=== PATIENT | female | born 2000 | race Caucasian/White ===

== ENCOUNTER 2024-03-03 09:30 | Inpatient (IN) | payer BC ==
[~2024-03-03] VITALS: Ht 154.9 cm; Wt 124.7 kg
[2024-03-03 09:35] VITALS: BP_SYST 123; PULSE 106; RESP 19; TEMP 98.2; O2SAT 95
[2024-03-03 10:01] LABS: BASOPHILS # (AUTO) 0.1 K/uL (0.0-0.2); BASOPHILS % (AUTO) 0.6 % (0.0-2.0); EOSINOPHILS # (AUTO) 0.1 K/uL (0.0-0.4); EOSINOPHILS % (AUTO) 0.4 % (0.0-4.0); HEMATOCRIT 31.1 % (36-48); HEMOGLOBIN 9.5 g/dL (12.0-16.0); LYMPHOCYTES # (AUTO) 3.3 K/uL (1.0-5.5); LYMPHOCYTES % (AUTO) 20.4 % (20.5-51.5); MEAN CORPUSCULAR HEMOGLOBIN 20 pg (27-31); MEAN CORPUSCULAR HGB CONC 31 % (32-36); MEAN CORPUSCULAR VOLUME 64 fL (79.0-98.0); MONOCYTES # (AUTO) 1.2 K/uL (0.0-1.0); MONOCYTES % (AUTO) 7.7 % (1.7-9.3); NEUTROPHILS # (AUTO) 11.5 K/uL (1.8-7.7); NEUTROPHILS % (AUTO) 70.9 % (40.0-70.0); PLATELET COUNT (AUTO) 405 K/uL (130-430); RED BLOOD CELL COUNT(AUTO) 4.86 MIL/uL (4.2-6.2); RED CELL DISTRIBUTION WIDTH 18.1 % (9.0-15.0); WHITE BLOOD COUNT (AUTO) 16.2 K/uL (4.8-10.8)
[2024-03-03 10:16] LABS: CALCIUM 8.9 mg/dL (8.4-11.0); CREATININE 0.69 mg/dL (0.55-1.30); POTASSIUM 4.8 mmol/L (3.5-5.1)
[2024-03-03] MEDS: KETOROLAC TROMETHAMINE 30 MG VIAL IVP ONE (10:53)
[2024-03-03 11:06] LABS: BILIRUBIN,URINE NEGATIVE (NEGATIVE); BLOOD, URINE NEGATIVE (NEGATIVE); CLARITY/URINE CLEAR (CLEAR); COLOR,URINE YELLOW (YELLOW); GLUCOSE,URINE NEGATIVE (NEGATIVE); KETONES,URINE NEGATIVE (NEGATIVE); LEUKOCYTE ESTERASE ,URINE NEGATIVE (NEGATIVE); NITRITE, URINE NEGATIVE (NEGATIVE); PH,URINE 7.5 (5.0-8.0); PROTEIN URINE NEGATIVE (NEGATIVE); UROBILINOGEN,URINE 0.2 (0.2-1.0)
[2024-03-03] MEDS ORDERED: PIPERACILLIN/TAZOBACTAM 4.5 GM/VIAL (ZOSYN) IV ONE (12:17)
[2024-03-03] MEDS: PIPERACILLIN/TAZO 4.5 GM in NS 100 ML IV ONE (12:41)
[2024-03-03] MEDS: LR 500 ML IV ONE (12:43)
[2024-03-03] MEDS ORDERED: NALOXONE HCL 0.4 MG/ML AMP (NARCAN) IVP PRN (14:30)
[2024-03-03] MEDS: MORPHINE 2 MG/ML INJ. SYRINGE IVP PRN (14:52)
[2024-03-03 17:20] VITALS: BP_SYST 112; PULSE 81; RESP 18; TEMP 98.2
[2024-03-03 17:32] VITALS: O2SAT 97
[2024-03-03] MEDS: D5/0.45 NS 1,000 ML IV SCH (17:57)
[2024-03-03] MEDS: MORPHINE 4 MG INJ. 4 MG/ML VIAL IVP PRN (18:10)
[2024-03-03 20:00] VITALS: BP_SYST 118; PULSE 85; RESP 20; TEMP 99.1; O2SAT 98
[2024-03-03 20:45] VITALS: O2SAT 98
[2024-03-03] MEDS ORDERED: LORazepam 2 MG/ML VIAL IVP PRN (22:15)
[2024-03-04 02:30] VITALS: RESP 20; TEMP 99; O2SAT 98
[2024-03-04 06:06] LABS: BASOPHILS # (AUTO) 0.1 K/uL (0.0-0.2); BASOPHILS % (AUTO) 0.4 % (0.0-2.0); EOSINOPHILS # (AUTO) 0.1 K/uL (0.0-0.4); EOSINOPHILS % (AUTO) 0.5 % (0.0-4.0); HEMATOCRIT 32.2 % (36-48); HEMOGLOBIN 9.7 g/dL (12.0-16.0); LYMPHOCYTES # (AUTO) 2.8 K/uL (1.0-5.5); LYMPHOCYTES % (AUTO) 19.6 % (20.5-51.5); MEAN CORPUSCULAR HEMOGLOBIN 19 pg (27-31); MEAN CORPUSCULAR HGB CONC 30 % (32-36); MEAN CORPUSCULAR VOLUME 64 fL (79.0-98.0); MONOCYTES % (AUTO) 7.2 % (1.7-9.3); NEUTROPHILS # (AUTO) 10.4 K/uL (1.8-7.7); NEUTROPHILS % (AUTO) 72.3 % (40.0-70.0); PLATELET COUNT (AUTO) 408 K/uL (130-430); RED BLOOD CELL COUNT(AUTO) 5.05 MIL/uL (4.2-6.2); RED CELL DISTRIBUTION WIDTH 17.9 % (9.0-15.0); WHITE BLOOD COUNT (AUTO) 14.4 K/uL (4.8-10.8)
[2024-03-04 06:37] LABS: CALCIUM 8.5 mg/dL (8.4-11.0); CREATININE 0.74 mg/dL (0.55-1.30); POTASSIUM 4.2 mmol/L (3.5-5.1)
[2024-03-04] MEDS ORDERED: DIATR MEGLU/DIATRIZ SOD 30 ML SOLUTION PO ONE (07:49)
[2024-03-04 07:50] VITALS: BP_SYST 113; PULSE 95; RESP 20; TEMP 96; O2SAT 99
[2024-03-04 08:41] LABS: ANISOCYTOSIS 1+; HYPOCHROMASIA 1+; OVALOCYTES FEW
[2024-03-04 09:45] VITALS: O2SAT 99
[2024-03-04 12:27] VITALS: BP_SYST 121; PULSE 87; RESP 18; TEMP 98.4
[2024-03-04] MEDS: CIPROFLOXACIN LACT 400 MG/D5W 200 ML IV ONE (13:39)
[2024-03-04] MEDS: metroNIDAZOLE 500 mg/NS 100 ML IV SCH (15:20)
[2024-03-04 17:05] VITALS: BP_SYST 102; PULSE 85; RESP 17; TEMP 99.5; O2SAT 98
[2024-03-04 20:02] VITALS: BP_SYST 117; PULSE 93; RESP 18; TEMP 99.1; O2SAT 98
[2024-03-04] MEDS: CIPROFLOXACIN LACT 400 MG/D5W 200 ML IV SCH (20:16)
[2024-03-05 00:28] VITALS: BP_SYST 109; PULSE 88; RESP 18; TEMP 99.6; O2SAT 99
[2024-03-05 04:35] LABS: ERYTHROCYTE SEDIMENTATION RATE 45 MM/HR (0-20)
[2024-03-05 04:44] LABS: BASOPHILS % (AUTO) 0.3 % (0.0-2.0); EOSINOPHILS # (AUTO) 0.1 K/uL (0.0-0.4); EOSINOPHILS % (AUTO) 0.6 % (0.0-4.0); HEMATOCRIT 31.1 % (36-48); HEMOGLOBIN 9.4 g/dL (12.0-16.0); LYMPHOCYTES # (AUTO) 1.9 K/uL (1.0-5.5); LYMPHOCYTES % (AUTO) 13.9 % (20.5-51.5); MEAN CORPUSCULAR HEMOGLOBIN 19 pg (27-31); MEAN CORPUSCULAR HGB CONC 30 % (32-36); MEAN CORPUSCULAR VOLUME 64 fL (79.0-98.0); MONOCYTES # (AUTO) 1.1 K/uL (0.0-1.0); NEUTROPHILS # (AUTO) 10.4 K/uL (1.8-7.7); NEUTROPHILS % (AUTO) 77.2 % (40.0-70.0); PLATELET COUNT (AUTO) 390 K/uL (130-430); RED BLOOD CELL COUNT(AUTO) 4.89 MIL/uL (4.2-6.2); RED CELL DISTRIBUTION WIDTH 17.8 % (9.0-15.0); WHITE BLOOD COUNT (AUTO) 13.5 K/uL (4.8-10.8)
[2024-03-05 05:01] LABS: ALBUMIN 2.5 g/dL (3.4-4.8); CALCIUM 8.5 mg/dL (8.4-11.0); CREATININE 0.74 mg/dL (0.55-1.30); POTASSIUM 4.1 mmol/L (3.5-5.1); TOTAL BILIRUBIN 0.6 mg/dL (0.0-1.0); TOTAL PROTEIN, SERUM 7.3 g/dL (6.4-8.3)
[2024-03-05 08:00] VITALS: BP_SYST 121; PULSE 91; RESP 18; TEMP 98.7; O2SAT 98
[2024-03-05] MEDS ORDERED: ACETAMINOPHEN 325 MG TABLET PO PRN (09:45)
[2024-03-05] MEDS ORDERED: HYDROcodone/ACETAMIN 5-325 MG TAB (NORCO/ VICODIN) PO PRN (09:45)
[2024-03-05] MEDS ORDERED: NALOXONE HCL 0.4 MG/ML AMP (NARCAN) IVP PRN ×2 (09:45)
[2024-03-05 12:10] VITALS: BP_SYST 110; PULSE 92; RESP 16; TEMP 99.9; O2SAT 98
[2024-03-05 17:35] VITALS: BP_SYST 119; PULSE 90; RESP 16; TEMP 100.2; O2SAT 98
[2024-03-05 20:00] VITALS: BP_SYST 104; RESP 18; TEMP 98.9; O2SAT 99
[2024-03-06 00:02] VITALS: BP_SYST 118; PULSE 85; RESP 16; TEMP 98.8; O2SAT 97
[2024-03-06 05:54] LABS: CALCIUM 8.6 mg/dL (8.4-11.0); CREATININE 0.73 mg/dL (0.55-1.30)
[2024-03-06 06:44] LABS: BASOPHILS % (AUTO) 0.3 % (0.0-2.0); EOSINOPHILS # (AUTO) 0.1 K/uL (0.0-0.4); EOSINOPHILS % (AUTO) 0.5 % (0.0-4.0); HEMOGLOBIN 9.3 g/dL (12.0-16.0); LYMPHOCYTES # (AUTO) 1.9 K/uL (1.0-5.5); LYMPHOCYTES % (AUTO) 12.7 % (20.5-51.5); MEAN CORPUSCULAR HEMOGLOBIN 19 pg (27-31); MEAN CORPUSCULAR HGB CONC 30 % (32-36); MEAN CORPUSCULAR VOLUME 64 fL (79.0-98.0); MONOCYTES # (AUTO) 1.3 K/uL (0.0-1.0); MONOCYTES % (AUTO) 8.4 % (1.7-9.3); NEUTROPHILS % (AUTO) 78.1 % (40.0-70.0); PLATELET COUNT (AUTO) 421 K/uL (130-430); RED BLOOD CELL COUNT(AUTO) 4.87 MIL/uL (4.2-6.2); RED CELL DISTRIBUTION WIDTH 17.6 % (9.0-15.0); WHITE BLOOD COUNT (AUTO) 15.4 K/uL (4.8-10.8)
[2024-03-06 08:00] VITALS: BP_SYST 111; PULSE 84; RESP 16; TEMP 98.9; O2SAT 97
[2024-03-06 08:01] LABS: ERYTHROCYTE SEDIMENTATION RATE 111 MM/HR (0-20)
[2024-03-06 12:00] VITALS: BP_SYST 114; PULSE 91; RESP 16; TEMP 98.4; O2SAT 99
[2024-03-06] MEDS: PIPERACILLIN/TAZO 3.375 GM in NS 50 ML IV SCH (15:00)
[2024-03-06 16:13] VITALS: BP_SYST 113; PULSE 86; RESP 17; TEMP 98.6; O2SAT 98
[2024-03-06 20:00] VITALS: BP_SYST 114; PULSE 98; RESP 18; TEMP 98.6; O2SAT 98
[2024-03-07 00:10] VITALS: BP_SYST 124; PULSE 84; RESP 18; TEMP 98.4; O2SAT 98
[2024-03-07 06:46] LABS: BASOPHILS % (AUTO) 0.2 % (0.0-2.0); CALCIUM 8.7 mg/dL (8.4-11.0); CREATININE 0.69 mg/dL (0.55-1.30); EOSINOPHILS # (AUTO) 0.1 K/uL (0.0-0.4); EOSINOPHILS % (AUTO) 0.8 % (0.0-4.0); HEMATOCRIT 31.1 % (36-48); HEMOGLOBIN 9.4 g/dL (12.0-16.0); LYMPHOCYTES # (AUTO) 2.7 K/uL (1.0-5.5); LYMPHOCYTES % (AUTO) 20.7 % (20.5-51.5); MEAN CORPUSCULAR HEMOGLOBIN 19 pg (27-31); MEAN CORPUSCULAR HGB CONC 30 % (32-36); MEAN CORPUSCULAR VOLUME 64 fL (79.0-98.0); MONOCYTES % (AUTO) 7.8 % (1.7-9.3); NEUTROPHILS # (AUTO) 9.3 K/uL (1.8-7.7); NEUTROPHILS % (AUTO) 70.5 % (40.0-70.0); PLATELET COUNT (AUTO) 408 K/uL (130-430); POTASSIUM 3.9 mmol/L (3.5-5.1); RED BLOOD CELL COUNT(AUTO) 4.86 MIL/uL (4.2-6.2); WHITE BLOOD COUNT (AUTO) 13.2 K/uL (4.8-10.8)
[2024-03-07 07:46] LABS: ERYTHROCYTE SEDIMENTATION RATE 98 MM/HR (0-20)
[2024-03-07 08:00] VITALS: BP_SYST 97; PULSE 92; RESP 16; TEMP 98; O2SAT 100
[2024-03-07] MEDS: ONDANSETRON HCL 4 MG/2 ML VIAL IVP PRN (10:25)
[2024-03-07] MEDS: HYDROcodone/ACETAMIN 10-325 MG TAB PO PRN (10:47)
[2024-03-07 12:07] VITALS: BP_SYST 107; PULSE 88; RESP 17; TEMP 98.2; O2SAT 98
[2024-03-07 15:46] VITALS: BP_SYST 92; PULSE 90; RESP 16; TEMP 97; O2SAT 97
[2024-03-07 20:00] VITALS: BP_SYST 99; PULSE 92; RESP 18; TEMP 97.8
[2024-03-08 00:02] VITALS: BP_SYST 106; PULSE 88; RESP 18; TEMP 97.4; O2SAT 98
[2024-03-08 05:08] LABS: ERYTHROCYTE SEDIMENTATION RATE 116 MM/HR (0-20)
[2024-03-08 05:17] LABS: BASOPHILS # (AUTO) 0.1 K/uL (0.0-0.2); BASOPHILS % (AUTO) 0.5 % (0.0-2.0); EOSINOPHILS # (AUTO) 0.2 K/uL (0.0-0.4); EOSINOPHILS % (AUTO) 1.3 % (0.0-4.0); HEMATOCRIT 30.3 % (36-48); HEMOGLOBIN 9.2 g/dL (12.0-16.0); LYMPHOCYTES # (AUTO) 2.7 K/uL (1.0-5.5); LYMPHOCYTES % (AUTO) 20.1 % (20.5-51.5); MEAN CORPUSCULAR HEMOGLOBIN 19 pg (27-31); MEAN CORPUSCULAR HGB CONC 30 % (32-36); MEAN CORPUSCULAR VOLUME 64 fL (79.0-98.0); MONOCYTES # (AUTO) 0.9 K/uL (0.0-1.0); MONOCYTES % (AUTO) 6.7 % (1.7-9.3); NEUTROPHILS # (AUTO) 9.5 K/uL (1.8-7.7); NEUTROPHILS % (AUTO) 71.4 % (40.0-70.0); PLATELET COUNT (AUTO) 408 K/uL (130-430); RED BLOOD CELL COUNT(AUTO) 4.75 MIL/uL (4.2-6.2); RED CELL DISTRIBUTION WIDTH 17.9 % (9.0-15.0); WHITE BLOOD COUNT (AUTO) 13.3 K/uL (4.8-10.8)
[2024-03-08 05:31] LABS: ALBUMIN 2.3 g/dL (3.4-4.8); CALCIUM 8.4 mg/dL (8.4-11.0); CREATININE 0.72 mg/dL (0.55-1.30); POTASSIUM 3.9 mmol/L (3.5-5.1); TOTAL BILIRUBIN 0.3 mg/dL (0.0-1.0); TOTAL PROTEIN, SERUM 6.6 g/dL (6.4-8.3)
[2024-03-08 08:48] VITALS: BP_SYST 99; PULSE 89; RESP 17; TEMP 97.9; O2SAT 95
[2024-03-08 10:00] VITALS: O2SAT 95
[2024-03-08 12:00] VITALS: BP_SYST 116; PULSE 80; RESP 16; TEMP 97.9; O2SAT 99
[2024-03-08] MEDS: ACETAMINOPHEN 325 MG TABLET PO PRN (14:05)
[2024-03-08 16:00] VITALS: BP_SYST 108; PULSE 79; RESP 17; TEMP 98.5; O2SAT 97
[2024-03-08] MEDS: VANCOMYCIN HCL 1,000 MG in NS 250 ML IV ONE (17:03)
[2024-03-08 20:01] VITALS: BP_SYST 123; PULSE 92; RESP 18; TEMP 99.3; O2SAT 99
[2024-03-08] MEDS: VANCOMYCIN HCL 1,000 MG in NS 250 ML IV SCH (22:37)
[2024-03-09] VITALS (7 sets, daily range): BP systolic 97–122; PULSE 64–98; RESP 16–18; TEMP 97.2–99; O2SAT 97–98
[2024-03-09 06:19] LABS: CALCIUM 8.4 mg/dL (8.4-11.0); CREATININE 0.76 mg/dL (0.55-1.30); POTASSIUM 3.8 mmol/L (3.5-5.1)
[2024-03-09 06:22] LABS: ERYTHROCYTE SEDIMENTATION RATE 116 MM/HR (0-20)
[2024-03-09 06:46] LABS: BASOPHILS % (AUTO) 0.3 % (0.0-2.0); EOSINOPHILS # (AUTO) 0.1 K/uL (0.0-0.4); EOSINOPHILS % (AUTO) 1.1 % (0.0-4.0); LYMPHOCYTES # (AUTO) 2.3 K/uL (1.0-5.5); LYMPHOCYTES % (AUTO) 17.9 % (20.5-51.5); MEAN CORPUSCULAR HEMOGLOBIN 19 pg (27-31); MEAN CORPUSCULAR HGB CONC 30 % (32-36); MEAN CORPUSCULAR VOLUME 64 fL (79.0-98.0); MONOCYTES # (AUTO) 0.9 K/uL (0.0-1.0); NEUTROPHILS # (AUTO) 9.6 K/uL (1.8-7.7); NEUTROPHILS % (AUTO) 73.7 % (40.0-70.0); PLATELET COUNT (AUTO) 432 K/uL (130-430); RED BLOOD CELL COUNT(AUTO) 4.69 MIL/uL (4.2-6.2); RED CELL DISTRIBUTION WIDTH 18.2 % (9.0-15.0); WHITE BLOOD COUNT (AUTO) 13.1 K/uL (4.8-10.8)
[2024-03-09] MEDS: VANCOMYCIN HCL 1,000 MG in NS 250 ML IV SCH (17:02)
[2024-03-09] MEDS: PANTOPRAZOLE SODIUM 40 MG TAB PO ONE (18:35)
[2024-03-10] VITALS: BP_SYST 115; PULSE 85; RESP 18; TEMP 98.7; O2SAT 98
[2024-03-10 04:50] LABS: ERYTHROCYTE SEDIMENTATION RATE 111 MM/HR (0-20)
[2024-03-10 05:01] LABS: BASOPHILS % (AUTO) 0.3 % (0.0-2.0); EOSINOPHILS # (AUTO) 0.2 K/uL (0.0-0.4); EOSINOPHILS % (AUTO) 1.5 % (0.0-4.0); HEMATOCRIT 29.2 % (36-48); HEMOGLOBIN 8.8 g/dL (12.0-16.0); LYMPHOCYTES # (AUTO) 2.8 K/uL (1.0-5.5); LYMPHOCYTES % (AUTO) 20.9 % (20.5-51.5); MEAN CORPUSCULAR HEMOGLOBIN 19 pg (27-31); MEAN CORPUSCULAR HGB CONC 30 % (32-36); MEAN CORPUSCULAR VOLUME 64 fL (79.0-98.0); MONOCYTES % (AUTO) 7.6 % (1.7-9.3); NEUTROPHILS # (AUTO) 9.3 K/uL (1.8-7.7); NEUTROPHILS % (AUTO) 69.7 % (40.0-70.0); PLATELET COUNT (AUTO) 474 K/uL (130-430); RED BLOOD CELL COUNT(AUTO) 4.58 MIL/uL (4.2-6.2); RED CELL DISTRIBUTION WIDTH 18.1 % (9.0-15.0); WHITE BLOOD COUNT (AUTO) 13.4 K/uL (4.8-10.8)
[2024-03-10 05:24] LABS: ALBUMIN 2.5 g/dL (3.4-4.8); CALCIUM 8.6 mg/dL (8.4-11.0); CREATININE 0.96 mg/dL (0.55-1.30); POTASSIUM 4.1 mmol/L (3.5-5.1); TOTAL BILIRUBIN 0.3 mg/dL (0.0-1.0); TOTAL PROTEIN, SERUM 6.8 g/dL (6.4-8.3)
[2024-03-10 08:03] VITALS: BP_SYST 114; PULSE 85; RESP 19; TEMP 99.5; O2SAT 95
[2024-03-10] MEDS: PANTOPRAZOLE SODIUM 40 MG TAB PO SCH (08:10)
[2024-03-10 09:00] VITALS: O2SAT 98
[2024-03-10] MEDS ORDERED: PRO40 PO (09:40)
[2024-03-10] MEDS ORDERED: AUG875 PO (09:40)
[2024-03-10] MEDS ORDERED: HYDR-3927 PO (09:40)
[2024-03-10 12:14] VITALS: BP_SYST 113; PULSE 89; RESP 18; TEMP 99; O2SAT 99
[2024-03-10 12:39] VITALS: BP_SYST 113; PULSE 89; RESP 18; TEMP 99; O2SAT 97
== END 2024-03-10 15:00 | disposition home or self-care (01) | DRG 871 ==
LOC: SED 09:30 → SMU 11:45
PROVIDERS: ADMIT Preventive Medicine Preventive Medicine/Occupational Environmental Medicine; ATTEND Preventive Medicine Preventive Medicine/Occupational Environmental Medicine
DX: A41.9 Sepsis, unspecified organism (principal); K35.33 Acute appendicitis with perforation, localized peritonitis, and gangrene, with abscess; Z68.43 Body mass index [BMI] 50.0-59.9, adult; E88.09 Other disorders of plasma-protein metabolism, not elsewhere classified; D75.839 Thrombocytosis, unspecified; D50.0 Iron deficiency anemia secondary to blood loss (chronic); E66.9 Obesity, unspecified; D72.829 Elevated white blood cell count, unspecified; N92.1 Excessive and frequent menstruation with irregular cycle; Z79.899 Other long term (current) drug therapy
CPT/HCPCS: 36415; 80048; 80053; 81001; 81003; 85025; 85651; 97112-GP; 97116-GP; 99285; J0744; J1885; J2270; J2405; J2543; J3370; J3490; J7050; Q9964; Q9967